=== PATIENT | female | born 1995 | race Caucasian/White ===

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

== ENCOUNTER 2019-05-24 15:17 | Outpatient (CLI) | payer MEDICAID ==
[2016-07-08 19:30] VITALS: BMI 32.4
== END 2019-05-24 16:35 | disposition home or self-care (01) ==
LOC: D.LDO 15:17
PROVIDERS: ATTEND Obstetrics & Gynecology
DX: O24.419 Gestational diabetes mellitus in pregnancy, unspecified control (principal); Z3A.00 Weeks of gestation of pregnancy not specified

== ENCOUNTER → 2019-05-28 17:51 | Outpatient (CLI) | payer MEDICAID ==
[2016-07-08 19:30] VITALS: BMI 32.4
== END | disposition home or self-care (01) ==
LOC: D.LDO 17:51
PROVIDERS: ATTEND Student in an Organized Health Care Education/Training Program
DX: O24.419 Gestational diabetes mellitus in pregnancy, unspecified control (principal); Z3A.00 Weeks of gestation of pregnancy not specified

== ENCOUNTER 2019-05-31 17:17 | Outpatient (CLI) | payer MEDICAID ==
[2016-07-08 19:30] VITALS: BMI 32.4
== END 2019-05-31 17:25 | disposition home or self-care (01) ==
LOC: D.LDO 17:17
PROVIDERS: ATTEND Obstetrics & Gynecology
DX: O24.419 Gestational diabetes mellitus in pregnancy, unspecified control (principal)

== ENCOUNTER → 2019-06-03 14:09 | Outpatient (CLI) | payer MEDICAID ==
[2016-07-08 19:30] VITALS: BMI 32.4
== END | disposition home or self-care (01) ==
LOC: D.LDO 14:09
PROVIDERS: ATTEND Obstetrics & Gynecology
DX: O24.419 Gestational diabetes mellitus in pregnancy, unspecified control (principal)

== ENCOUNTER 2019-06-07 12:04 | Outpatient (CLI) | payer MEDICAID ==
[2016-07-08 19:30] VITALS: BMI 32.4
== END 2019-06-07 14:03 | disposition home or self-care (01) ==
LOC: D.LDO 12:04
PROVIDERS: ATTEND Obstetrics & Gynecology
DX: O24.419 Gestational diabetes mellitus in pregnancy, unspecified control (principal); Z3A.32 32 weeks gestation of pregnancy

== ENCOUNTER → 2019-06-10 12:30 | Outpatient (CLI) | payer MEDICAID ==
[2016-07-08 19:30] VITALS: BMI 32.4
== END | disposition home or self-care (01) ==
LOC: D.LDO 12:30
PROVIDERS: ATTEND Obstetrics & Gynecology
DX: O24.419 Gestational diabetes mellitus in pregnancy, unspecified control (principal)

== ENCOUNTER 2019-06-17 11:13 | Outpatient (CLI) | payer MEDICAID ==
[2016-07-08 19:30] VITALS: BMI 32.4
== END 2019-06-17 13:00 | disposition home or self-care (01) ==
LOC: D.LDO 11:13
PROVIDERS: ATTEND Obstetrics & Gynecology
DX: Z34.90 Encounter for supervision of normal pregnancy, unspecified, unspecified trimester (principal)

== ENCOUNTER 2019-06-21 11:21 | Outpatient (CLI) | payer MEDICAID ==
[2016-07-08 19:30] VITALS: BMI 32.4
== END 2019-06-21 12:05 | disposition home or self-care (01) ==
LOC: D.LDO 11:21
PROVIDERS: ATTEND Obstetrics & Gynecology
DX: O24.419 Gestational diabetes mellitus in pregnancy, unspecified control (principal)

== ENCOUNTER 2019-06-24 11:55 | Outpatient (CLI) | payer MEDICAID ==
[2016-07-08 19:30] VITALS: BMI 32.4
== END 2019-06-24 12:03 | disposition home or self-care (01) ==
LOC: D.LDO 11:55
PROVIDERS: ATTEND Obstetrics & Gynecology
DX: O24.419 Gestational diabetes mellitus in pregnancy, unspecified control (principal); Z3A.34 34 weeks gestation of pregnancy

== ENCOUNTER 2019-06-28 12:08 | Outpatient (CLI) | payer MEDICAID ==
[2016-07-08 19:30] VITALS: BMI 32.4
== END 2019-06-28 12:23 | disposition home or self-care (01) ==
LOC: D.LDO 12:08
PROVIDERS: ATTEND Obstetrics & Gynecology
DX: O24.419 Gestational diabetes mellitus in pregnancy, unspecified control (principal); Z3A.35 35 weeks gestation of pregnancy

== ENCOUNTER 2019-07-01 10:44 | Outpatient (CLI) | payer MEDICAID ==
[2016-07-08 19:30] VITALS: BMI 32.4
[2019-07-01 12:08] LABS: BASOPHILS 0.1 % (0-2); EOSINOPHILS 0.6 % (0-7); HEMATOCRIT 39.4 % (36.0-48.0); HEMOGLOBIN 12.3 g/dL (12-16); IMMATURE GRANULOCYTES 0.1 % (0-5); LYMPHOCYTES 20.3 % (15-50); MCH 25.2 pg (26.0-34.0); MCHC 31.2 g/dL (31.0-37.0); MCV 80.7 fL (80.0-100.0); MEAN PLATELET VOLUME 10.2 fL (7.4-10.4); MONOCYTES 4.4 % (2-11); NEUTROPHILS 74.5 % (40-80); RBC 4.88 10x6/uL (4.00-5.40); WBC 8.2 10x3/uL (4.8-10.8)
[2019-07-01 12:22] LABS: PLATELET COUNT 228 10x3/uL (130-400)
[2019-07-01 13:40] LABS: BACTERIA MODERATE /hpf (NEGATIVE); BILIRUBIN NEGATIVE (NEGATIVE); GLUCOSE NEGATIVE (NEGATIVE); KETONE SMALL mg/dL (NEGATIVE); NITRITE NEGATIVE (NEGATIVE); UROBILINOGEN NORMAL (NORMAL)
== END 2019-07-01 13:45 | disposition home or self-care (01) ==
LOC: D.LDO 10:44
PROVIDERS: ATTEND Obstetrics & Gynecology
DX: O24.419 Gestational diabetes mellitus in pregnancy, unspecified control (principal); Z3A.35 35 weeks gestation of pregnancy

== ENCOUNTER 2019-07-05 11:51 | Outpatient (CLI) | payer MEDICAID ==
[2016-07-08 19:30] VITALS: BMI 32.4
== END 2019-07-05 11:52 | disposition home or self-care (01) ==
LOC: D.LDO 11:51
PROVIDERS: ATTEND Obstetrics & Gynecology
DX: O24.419 Gestational diabetes mellitus in pregnancy, unspecified control (principal); Z3A.36 36 weeks gestation of pregnancy

== ENCOUNTER 2019-07-08 11:31 | Outpatient (CLI) | payer MEDICAID ==
[2016-07-08 19:30] VITALS: BMI 32.4
== END 2019-07-08 12:05 | disposition home or self-care (01) ==
LOC: D.LDO 11:31
PROVIDERS: ATTEND Obstetrics & Gynecology
DX: O24.419 Gestational diabetes mellitus in pregnancy, unspecified control (principal); Z3A.36 36 weeks gestation of pregnancy

== ENCOUNTER 2019-07-12 11:21 | Outpatient (CLI) | payer MEDICAID ==
[2016-07-08 19:30] VITALS: BMI 32.4
== END 2019-07-12 11:40 | disposition home or self-care (01) ==
LOC: D.LDO 11:21
PROVIDERS: ATTEND Obstetrics & Gynecology
DX: O24.419 Gestational diabetes mellitus in pregnancy, unspecified control (principal); Z3A.37 37 weeks gestation of pregnancy

== ENCOUNTER 2019-07-15 12:08 | Outpatient (CLI) | payer MEDICAID ==
[2016-07-08 19:30] VITALS: BMI 32.4
== END 2019-07-15 12:30 | disposition home or self-care (01) ==
LOC: D.LDO 12:08
PROVIDERS: ATTEND Obstetrics & Gynecology
DX: O24.419 Gestational diabetes mellitus in pregnancy, unspecified control (principal); Z3A.37 37 weeks gestation of pregnancy

== ENCOUNTER → 2019-07-16 17:51 | Outpatient (CLI) | payer MEDICAID ==
[2016-07-08 19:30] VITALS: BMI 32.4
== END | disposition home or self-care (01) ==
LOC: D.LDO 17:51
PROVIDERS: ATTEND Obstetrics & Gynecology
DX: O26.893 Other specified pregnancy related conditions, third trimester (principal); Z3A.38 38 weeks gestation of pregnancy; N85.8 Other specified noninflammatory disorders of uterus; R10.30 Lower abdominal pain, unspecified; O24.419 Gestational diabetes mellitus in pregnancy, unspecified control

== ENCOUNTER 2019-07-19 11:07 | Outpatient (CLI) | payer MEDICAID ==
[2016-07-08 19:30] VITALS: BMI 32.4
== END 2019-07-19 12:30 | disposition home or self-care (01) ==
LOC: D.LDO 11:07
PROVIDERS: ATTEND Obstetrics & Gynecology
DX: O24.419 Gestational diabetes mellitus in pregnancy, unspecified control (principal); Z3A.38 38 weeks gestation of pregnancy

== ENCOUNTER 2019-07-22 05:50 | Inpatient (IN) | payer MEDICAID ==
[2019-07-22] VITALS (12 sets, daily range): BP systolic 98–133; BP diastolic 59–92; Ht 172.7 cm; Wt 107.3 kg
[~2019-07-22] VITALS: Ht 172.7 cm; Wt 107.3 kg
[2019-07-22 06:34] LABS: HEMATOCRIT 37.3 % (36.0-48.0); HEMOGLOBIN 11.8 g/dL (12-16); MCHC 31.6 g/dL (31.0-37.0); MEAN PLATELET VOLUME 10.2 fL (7.4-10.4); RBC 4.72 10x6/uL (4.00-5.40); RDW 14.8 % (11.5-14.5); WBC 8.2 10x3/uL (4.8-10.8)
[2019-07-22] MEDS ORDERED: GLYBURIDE5 M1 (06:45)
--- NOTE | 2019-07-22 09:35 | NUR ---
PT RECEIVED VIA BED FROM PACU TO ROOM 1219 POST . PT AAOx3, DENIES PAIN, NAUSEA, OR ANY NEEDS. PITOCIN INFUSING ORDERED TO RIGHT WRIST PIV. IV SITE C/D/I. FF, ML, U/2. SMALL RUBRA LOCHIA, NO CLOTS. ABD DRESSING OVER LOW TRANSVERSE INCISION SITE IS C/D/I. CURRY CATH DRAINING CLEAR YELLOW URINE. TUBING SECURED VIA STAT LOCK TO INNER RIGHT THIGH. SCD'S ON LE BILAT AND ON PUMP. INCENTIVE SPIROMETER AT BEDSIDE, WILL REINFORCE TEACHING. ICE PACK TO ABD INCISION WELL SUPPORTIVE SURGICAL PILLOW. PT GIVEN ICE WATER AND INSTRUCTED TO SIP SLOWLY AND REPORT ANY NAUSEA. EMESIS BAG GIVEN IN CASE OF VOMITING. SRUx2, CL IN REACH. TONNY RN IN PACU STATES HE IS GOING TO CHECK FSBS.
--- NOTE | 2019-07-22 09:45 | NUR ---
FF, ML, U/2. SMALL RUBRA LOCHIA, NO CLOTS. PT DENIES PAIN OR NEEDS.
--- NOTE | 2019-07-22 10:00 | NUR ---
FF, ML, U/2. SMALL RUBRA LOCHIA, NO CLOTS. PT SITTING UP IN BED HOLDING INFANT. DENIES NEEDS. SIG OTHER AT BEDSIDE. SRUx2, CL IN REACH.
--- NOTE | 2019-07-22 10:30 | NUR ---
FF, ML, U/2. SMALL RUBRA LOCHIA, NO CLOTS. VS REMAIN STABLE, SEE FLOWSHEET FOR DOC.
--- NOTE | 2019-07-22 11:00 | NUR ---
FF, ML, U/2. SMALL RUBRA LOCHIA, NO CLOTS. CURRY CATH DRAINING WELL, 60ML CLEAR YELLOW URINE EMPTIED FROM UROMETER. PERIPADS CHANGED. PT DENIES PAIN OR NEEDS. SRUx2, CL IN REACH. SIG OTHER AT BEDSIDE HOLDING INFANT. WILL CONT TO MONITOR.
--- NOTE | 2019-07-22 11:45 | NUR ---
SITTING UP IN BED HOLDING . DENIES NEEDS.
--- NOTE | 2019-07-22 12:00 | NUR ---
THIS RN TO ROOM FOR PT CHECK AND VS. VSS, SEE FLOWSHEET. PT REPORTS MILD PAIN, BUT STATES IT IS WELL CONTROLLED WITH TATTOO DESIGNER. ABD DRESSING REMAINS C/D/I. FF, ML, U/U. SMALL RUBRA LOCHIA, NO CLOTS. PERIPAD CHANGED. CURRY CATH DRAINING CLEAR YELLOW URINE, 60ML EMPTIED FROM UROMETER. PT DENIES ANY NEEDS AT THIS TIME. SRUx2, CL IN REACH. SIG OTHER AT BEDSIDE. NRSY IN ROOM WITH . WILL CONT TO MONITOR.
--- NOTE | 2019-07-22 13:00 | NUR ---
THIS RN TO ROOM FOR PT CHECK. FUNDUS FIRMS WITH MASSAGE, ML, U/U. SMALL RUBRA LOCHIA, NO CLOTS. PERIPAD CHANGED. CURRY CATH DRAINING CLEAR YELLOW URINE, 100ML EMPTIED FROM UROMETER. PT C/O CRAMPING PAIN AFTER FUNDAL MASSAGE, REQUESTING TORADOL DISCUSSED PREVIOUSLY. WILL ADMIN ORDERED. PT SITTING UP IN BED TO EAT CLEAR LIQUID LUNCH TRAY, DENIES NAUSEA. WILL ADMIN TORADOL ORDERED.
--- NOTE | 2019-07-22 13:13 | NUR ---
PT ADMIN TORADOL ORDERED, SEE EMAR FOR DOC. NEW ICE PACK TO ABD INCISION. PT DENIES NEEDS. SRUx2, CL IN REACH.
[2019-07-22 14:20] LABS: BASOPHILS 0.2 % (0-2); EOSINOPHILS 0.6 % (0-7); HEMATOCRIT 36.3 % (36.0-48.0); HEMOGLOBIN 11.3 g/dL (12-16); IMMATURE GRANULOCYTES 0.2 % (0-5); LYMPHOCYTES 17.9 % (15-50); MCH 24.6 pg (26.0-34.0); MCHC 31.1 g/dL (31.0-37.0); MCV 79.1 fL (80.0-100.0); MEAN PLATELET VOLUME 10.1 fL (7.4-10.4); MONOCYTES 7.3 % (2-11); NEUTROPHILS 73.8 % (40-80); PLATELET COUNT 198 10x3/uL (130-400); RBC 4.59 10x6/uL (4.00-5.40); RDW 14.6 % (11.5-14.5)
[2019-07-22 14:28] LABS: WBC 10.4 10x3/uL (4.8-10.8)
--- NOTE | 2019-07-22 14:30 | NUR ---
THIS RN TO ROOM FOR PT CHECK. PT SITTING UP IN BED, INFANT. FUNDUS FIRMS WITH MASSAGE, ML, U/U. SMALL RUBRA LOCHIA, NO CLOTS. PT REPORTS GOOD PAIN RELIEF AFTER TORADOL DOSE. 60ML EMPTIED FROM CURRY UROMETER. PT DENIES NEEDS. SRUx2, CL IN REACH.
--- NOTE | 2019-07-22 15:13 | NUR ---
THIS RN TO ROOM WITH FABRICE HONG. VSS, SEE FLOWSHEET FOR DOC. PT REPORTS PAIN SCALE OF 3-4/10, USING MACHINE SIZER NEEDED. PERICARE DONE, BED PADS CHANGED, NEW PERIPADS PLACED. FF, ML, U/U. SMALL TO MOD RUBRA LOCHIA, NO CLOTS. CURRY CATH DRAINING YELLOW URINE TO BEDSIDE DRAINAGE, 50ML NOTED EMPTIED FROM UROMETER. FRESH ICE WATER GIVEN. PT DENIES FURTHER NEEDS. SRUx2, CL IN REACH. WILL CONT TO MONITOR.
--- NOTE | 2019-07-22 17:38 | NUR ---
CARSON ARE DONE -SCANT LOCHIA NOTED. PADS CHANGED. FUNDUS UU/FIRM.
--- NOTE | 2019-07-22 17:39 | NUR ---
IV INTAKE- 1010CC. CURRY URINE OUTPUT- 950CC.
--- NOTE | 2019-07-22 17:46 | NUR ---
SIPPING ON CLEAR LIQ DIET AT THIS TIME.
--- NOTE | 2019-07-22 19:13 | NUR ---
REPORT TO PM SHIFT.
--- NOTE | 2019-07-22 19:15 | NUR ---
REPORT FROM HASEEB DIEHL RN
--- NOTE | 2019-07-22 20:00 | NUR ---
PT IN BED RESTING ON HER BACK. SHE STATES SHE IS STILL A LITTLE NUMB FROM HER EPIDURAL. i EXPLAINED THAT SHE WOULD STAY IN BED THE REST OF THE NIGHT. SHE HAS A CURRY CATHETER THAT IS DRAINING CLEAR YELLOW URINE. SHE HAS A DRESSING ON HER INCISION SITE WITH NO DRAINAGE OR BLEEDING NOTED. FUNDUS IS FIRM. LOCHIA IS SMALL TO MEDIUM. SHE HAS PASSED SOME STRINGY CLOTS. SHE WAS CLEANED UP WITH WARM WASHCLOTHES. PADS WERE CHANGED. PT HAS A COLD PATCHER PUMP FOR PAIN CONTROL. PT STATES SHE IS HUNGRY. GAVE HER A LIST OF THE CLEAR LIQUIDS ON THE UNIT AND SHE REQUESTED JUICE AND JELLO. BOTH WERE DELIVERED. NO NAUSEA NOTED. ASSESSMENT HAS BEEN COMPLETED.
--- NOTE | 2019-07-22 23:44 | NUR ---
RESTING QUIETLY IN ROOM. NO NEW C/O.
[2019-07-23] VITALS: BP 123/77
--- NOTE | 2019-07-23 | NUR ---
PT RESTING QUIETLY. VS TAKEN.
--- NOTE | 2019-07-23 00:10 | NUR ---
PT STATES SHE CAN FEEL HERSELF BLEEDING. I LOOKED AT HER PADS AND SHE NEEDED TO BE CLEANED UP AGAIN. HER CARSON AREA WAS CLEANED WITH WARM WASHCLOTHES. NO CLOTS NOTED THIS TIME. NEW PADS WERE PLACED AND A NEW TOWEL WAS PUT BENEATH HER BUTTOCKS. SHE STATES SHE FEELS BETTER.
--- NOTE | 2019-07-23 02:10 | NUR ---
PT RESTING QUIETLY IN HER ROOM. BABY AND ALSO IN ROOM
[2019-07-23 04:30] VITALS: BP 124/83
--- NOTE | 2019-07-23 04:30 | NUR ---
VS TAKEN. CHANGED PT PAD AGAIN. MUCH LESS BLEEDING THAN EARLIER THIS MORNING. EMPTIED CURRY CATHETER OBTAINING 1100 ML SLIGHT DARK URINE. PT HAS BEEN ENCOURAGED TO DRINK FLUIDS. SHE WAS GIVEN A MUG FULL OF FRESH WATER.
[2019-07-23 05:08] LABS: RAPID PLASMA REAGIN Non Reactive (Non Reactive)
--- NOTE | 2019-07-23 05:47 | NUR ---
PT IS RESTING QUIETLY. NO C/O
[2019-07-23 07:00] VITALS: BP 118/70
[2019-07-23 07:34] LABS: HEMATOCRIT 32.2 % (36.0-48.0); HEMOGLOBIN 10.5 g/dL (12-16); LYMPHOCYTES 31.4 % (15-50); MCH 25.4 pg (26.0-34.0); MCHC 32.6 g/dL (31.0-37.0); MEAN PLATELET VOLUME 9.7 fL (7.4-10.4); NEUTROPHILS 63.4 % (40-80); PLATELET COUNT 148 10x3/uL (130-400); RBC 4.13 10x6/uL (4.00-5.40); RDW 14.2 % (11.5-14.5); WBC 6.5 10x3/uL (4.8-10.8)
[2019-07-23 11:00] VITALS: BP 117/60
--- NOTE | 2019-07-23 11:40 | NUR ---
0715 AWAKE ALERT NO C/O PAIN UTILIZING [employer]AN[employer]IREMENT PLAN SPECIALIST OF DILAUDID ASSESSMENT COMPLETE ABDOMINAL DRESSING CDI
--- NOTE | 2019-07-23 11:41 | NUR ---
0720 LOCHIA SCANT RUBRA NOTED FUNDUS FIRM UNDER UMBILICA TENDERNESS TO TOUCH NOTED
--- NOTE | 2019-07-23 11:42 | NUR ---
0900 D/C DILAUDID NUTRITIONIST [facility]
--- NOTE | 2019-07-23 11:43 | NUR ---
0938 C/O PAIN PERCOCET 10 PO GIVEN
--- NOTE | 2019-07-23 11:44 | NUR ---
1000 DR ZAVALA AT BEDSIDE ASSESSING PATIENT REMOVED ABDOMINAL SURGICAL DRESSING ANNE INTACT NO DRAINAGE NOTED SITE SATISFACTORY
--- NOTE | 2019-07-23 11:46 | NUR ---
1010 PATRICIO MARTINES ASSISTED UP TO BEDSIDE COMMODE VOIDED 1OOOML URINE SPECIMEN COLLECTED AND SENT TO LAB
--- NOTE | 2019-07-23 11:48 | NUR ---
1015 UP TO SHOWER WITH ASSIST X 1 SHOWER CHAIR PROVIDED S.O. ASSISTED WITH SHOWER
--- NOTE | 2019-07-23 11:49 | NUR ---
1110 AMBULATING IN RUIZ PUSHING WHEELCHAIR WITH S.O. WITH STANDBY ASSIST WENT TO NURSERY WINDOW AND BACK
[2019-07-23 12:06] LABS: BILIRUBIN NEGATIVE (NEGATIVE); GLUCOSE NEGATIVE (NEGATIVE); KETONE NEGATIVE (NEGATIVE); NITRITE NEGATIVE (NEGATIVE); UROBILINOGEN NORMAL (NORMAL)
[2019-07-23 12:07] LABS: BACTERIA FEW /hpf (NEGATIVE); EPITHELIAL CELLS 0-5 /hpf (0-5); RED CELLS - URINE >50 /hpf (0-5); WHITE CELLS - URINE OCC /hpf (NEGATIVE)
--- NOTE | 2019-07-23 13:26 | NUR ---
1300 IN CHAIR APPETITE GOOD S.O. REMAINS AT BEDSIDE
--- NOTE | 2019-07-23 14:24 | NUR ---
1420 IN BED ASLEEP BABY IS IN THE NURSERY AT PRESENT S.O. REMAINS AT BEDSIDE
[2019-07-23 15:00] VITALS: BP 112/77
--- NOTE | 2019-07-23 16:04 | NUR ---
1500 AMBULATED TO TOILET WITHOUT ASSIST VOIDED 1000 ML YELLOW URINE
--- NOTE | 2019-07-23 17:44 | NUR ---
1722 C/O PAIN 10/23 PERCOCET 10MG PO GIVEN
--- NOTE | 2019-07-23 18:28 | NUR ---
3943 REASSESSMENT OF PAIN LEVEL PATIENT STATED 05/23
--- NOTE | 2019-07-23 19:09 | NUR ---
RECEIVED SHIFT REPORT FROM DAY SHIFT NURSE, INFORMED PT THAT I WILL BE BACK SHORTLY TO DO ASSESSMENT AND THEN TRANSFER HER TO L&D, PT VERBALIZES UNDERSTANDING, DENIES NEEDS AT THIS TIME, FOB ASLEEP AT BEDSIDE
[2019-07-23 19:25] VITALS: BP 124/77
--- NOTE | 2019-07-23 19:25 | NUR ---
ASSESSMENT PER FLOW SHEET, VS OBTAIEND, SALINE LOCK IN RIGHT WRIST INTACT WITH NO REDNESS OR EDEMA, FF, ML, U/2, PT REPORTS LITE BLEEDIG WITH NO CLOTS, BIKINI INC WITH ANNE CDI WITH NO DRAINAGE NOTED, CARSON PAD OVER INC FOR COMFORT AND MOISTURE CONTROL, PT REPORTS FLATUS, NO BM, AND VOIDING WITH NO DIFFICULTY, PT RATES INC PAIN 05/23, INFORMED PT THAT I AM GOING TO MAKE SURE HER ROOM IS READY AND BE RIGHT BACK, FOB AWAKE AND GETTING THINGS TOGETHER, INFANT TO NSY VIA OPEN CRIB CART PER THIS RN
--- NOTE | 2019-07-23 19:45 | NUR ---
PT TRANSFERRED TO ROOM 1273 VIA AMB, GAIT STEADY, WITH ALL BELONGINGS PER THIS RN AND FOB, PT ORIENTED TO ROOM, BED IN LOW POSITION, SIDE RAILS X 2, CALL LIGHT IN REACH
--- NOTE | 2019-07-23 20:30 | NUR ---
PT SITTING UP ON COUCH, DENIES NEEDS AT THIS TIME, FOB AT SIDE
--- NOTE | 2019-07-23 21:32 | NUR ---
PT IN BED, , C/O INC PAIN AND CRAMPING ADM PERCOCET AND MOTRIN PER MD ORDERS, SEE EMAR, WITH FRESH H20, PT DENIES FURTHER NEEDS, FOB AT BEDSIDE
--- NOTE | 2019-07-23 22:30 | NUR ---
PT HOLDING INFANT, LOOKING AT CELL PHONE, DENIES NEEDS AT THIS TIME, FOB AT BEDSIDE
[2019-07-24 00:05] VITALS: BP 119/68
--- NOTE | 2019-07-24 00:05 | NUR ---
PT AWAKE, INFANT TO ROOM VIA OPEN CRIB CART PER NSY NURSE, VS OBTAINED, HANDED INFANT TO PT, PT DENIES PAIN, REQUESTED AND SERVED FRESH H20, DENIES FURTHER NEEDS, FOB ASLEEP ON COUCH
--- NOTE | 2019-07-24 02:04 | NUR ---
PT AWAKE, HOLDING INFANT, DENIES NEED FOR PAIN MED AT THIS TIME, PT INST TO USE CALL LIGHT WHEN NEEDING PAIN MED, PT VERBALIZES UNDERSTANDING, DENIES NEEDS, FOB ASLEEP ON COUCH
[2019-07-24 04:10] VITALS: BP 124/83
--- NOTE | 2019-07-24 04:10 | NUR ---
PT AWAKE, HOLDING INFANT, VS OBTAINED, C/O INC PAIN AND CRAMPING, ADM PERCOCET AND MOTRIN PER MD ORDERS, SEE EMAR, PT DENIES FURTHER NEEDS, FOB ASLEEP ON COUCH
--- NOTE | 2019-07-24 04:28 | NUR ---
DR ZAVALA ON UNIT, DID ROUNDING, ORDER TO DISCHARGE PT AFTER 48 HOUR POST OP
--- NOTE | 2019-07-24 06:18 | NUR ---
PT HOLDING INFANT, DENIES NEEDS AT THIS TIME, FOB ASLEEP ON COUCH
[2019-07-24 07:00] VITALS: BP 138/79
[2019-07-24 11:00] VITALS: BP 127/72
--- NOTE | 2019-07-24 12:10 | NUR ---
0700 AWAKE ALERT SITTING IN BED HOLDING FATHER SITTING ON BEDSIDE LOOKING AT THE BABY STATED SHE WANTED PAIN MED WHEN IT WAS DUE NEXT VSS BREAKFAST SERVED ASSESSMENT COMPLETE SCANT LOCHIA NOTED FUNDUS FIRM BELOW UMBILICUS 2 FINGER BREATHS ABDOMINAL INCISION WITH ANNE CDI NO DRAINAGE NOTED SIGHT GISELLE
--- NOTE | 2019-07-24 12:16 | NUR ---
0800 APPETITE GOOD DENIES NAUSEA AMBULATING IN ROOM VOIDS WITH DIFFICULTY ASKING WHEN THEY CAN GO HOME. INFORMED PATIENT THAT ADMINISTRATOR SOCIAL WELFARE HAS TO ASSESS THE BABY BEFORE WRTTING DISCHARGE ORDERS
--- NOTE | 2019-07-24 12:22 | NUR ---
0915 REQUESTED PAIN MEDICATION PAIN LEVEL 6/10 PERCOCET 10 MG AND MOTRIN 600 MG PO GIVEN
--- NOTE | 2019-07-24 12:24 | NUR ---
1000 PAIN LEVEL NOW 1/10 PT SITTING ON SOFA IN ROOM AND DRESSED FOR HOME
[2019-07-24] MEDS ORDERED: PERCOCET 5-3251 TAB PO (12:25)
--- NOTE | 2019-07-24 12:25 | NUR ---
1100 SALINE LOCK DISCONTINUED. SPOUSE TAKING BELONGINGS TO CAR AND WILL BRING BACK THE SAFTY CAR BABY SEAT BACK UP TO THE ROOM
--- NOTE | 2019-07-24 12:27 | NUR ---
1200 LUNCH COMPLETE DENIES NAUSEA ASKING IF BABY HAS DISCHARGE ORDERS INFORMED THAT THE BABY DR WAS IN THE NURSERY NOW
--- NOTE | 2019-07-24 12:55 | NUR ---
1250 DISCHARGE PAPERS SIGNED WRITTEN AND VERBAL DISCHARGE INSTRUCTIONS WRITTEN PT VERBAALIZES UNDERSTANDING DR ALMARAZ ARRIVED TO ROOM AND SPOKE WITH THE PARENTS ABOUT THE BABYS DISCHARGE
--- NOTE | 2019-07-25 17:04 | MORECARE ---
CASE MANAGEMENT DISCHARGE SUMMARY PATIENT: JOSEE JONES UNIT: [id number] ADM DATE: 07/22/19 AGE: 23 : [birth year] SEX: F ROOM/BED: D.1273 AUTHOR: AUDI HENDRICKS PHYSICIAN: REFERRING PHYSICIAN: PHIL MCKEON MD DATE OF SERVICE: 07/25/19 Discharge Plan Patient Name: JOSEE JONES [facility] [facility] 1995 Planned Disposition: Home Anticipated Discharge Date: 07/24/19 Discharge Date: 07/24/2019 Expected LOS: 2 Initial Reviewer: [email or web address] Initial Review Date: 07/22/2019 Generated: 07/25/19 6:03 pm Patient Name: JOSEE JONES Page [id number] at 1704 All edits/amendments must be made on the electronic document DICTATION DATE: 07/25/191702 NUCLEAR PLANT INSTRUMENT TECHNICIAN: JAMIL 07/25/191702 RPT#: [id number] DC DATE:07/24/19 STATUS: DIS IN [facility] [address] [place] [address] END OF REPORT
--- NOTE | 2019-07-26 07:51 | OP ---
PATIENT NAME: JOSEE JONES MEDICAL RECORD: [id number] :[birth year] LOCATION:[facility] D.1273 ADMISSION DATE:07/22/19 SURGEON: LOUIE PARKER MD DATE OF OPERATION: 07/22/2019 PREOPERATIVE DIAGNOSES: 1. History of previous section. 2. Term intrauterine at 39 weeks. 3. A2 gestational diabetes. POSTOPERATIVE DIAGNOSES: 1. History of previous section. 2. Term intrauterine at 39 weeks. 3. A2 gestational diabetes. PROCEDURE: A repeat low transverse section. SURGEON: Louie Parker MD ANESTHESIA: Regional via spinal. INTRAVENOUS FLUIDS: Per anesthesia record. ESTIMATED BLOOD LOSS: 800 cc. SPECIMENS: Placenta and cord for gases. COMPLICATIONS: None apparent. FINDINGS: 1. Viable female , Apgars 9 at 1 and 9 at 5. 2. Placenta delivered manually intact, 3-vessel cord noted. 3. Normal adnexa bilaterally. PROCEDURE IN DETAIL: The patient was taken to the operating room where regional anesthesia was achieved without difficulty. The patient was then prepped and draped in normal sterile fashion in the dorsal supine position. SCDs were on and functioning normally. A Edwards catheter had been placed and was draining freely. Following prep and drape, a repeat Pfannenstiel skin incision was made, extended downward to the underlying subcutaneous fat to level of the fascia. The fascia was then excised in midline and extended bilaterally using the Del Real scissors and the Bovie cautery. The superior and inferior aspects of the fascial incision then grasped with Ralph clamps times 2, tented upward, and sharply dissected from the underlying rectus muscle using the Bovie cautery and Del Real scissors. The rectus muscles were bluntly in the midline and the peritoneum was entered sharply at the superior aspect of the incision. A downward dissection was performed and the bladder was visualized well and not felt to be under any abdominal distention. At this point, a bladder blade was placed into the pelvis and a bladder flap was created by excising the anterior leaf of broad ligament across the lower uterine segment. A low transverse incision was made on the uterus and extended via the Pelosi method. The vertex identified and corrected to a head flexion using the Kiwi vacuum with 1 application, correction of head flexion without traction on the neck. As the infants head was placed into the flexed position, delivery was performed. The vacuum was immediately removed. The was delivered OPERATIVE REPORT [id number] JOSEE JONES atraumatically, was bulb suctioned upon delivery. Cord was clamped times 2, cut, and was handed to awaiting nursery team. At this point, cord was obtained for gases. The placenta was removed manually intact, 3-vessel cord was noted. The uterus was exteriorized, cleared of all clots and debris and then repaired with 0 Vicryl in a running locked fashion times 2. The posterior cul-de-sac was then thoroughly irrigated and the uterus was returned to the pelvis, following confirmation of hemostasis, following repair of the uterine incision with 0 Vicryl. Counts were correct times 2 for needles, sponges, and instruments. The fascia was repaired with 0 loop PDS times 1 in a running unlocked fashion. The skin was repaired with tamanna. The patient tolerated procedure well, transferred to postanesthesia recovery stable without incident. TRANSINT:[id number] Voice Confirmation ID: [id number] DOCUMENT ID: [id number] LOUIE PARKER MD at 0751 CC: [id number] DICTATION DATE: 07/25/19 1023 VOICE WRITING REPORTER: 07/25/19 1203 DIS IN 07/24/19 [facility] [address] [place] [address]
== END 2019-07-24 18:00 | disposition home or self-care (01) | DRG 788 ==
LOC: D.WS 05:50 → D.LD 05:50 → D.SDCHOLD 07:30 → D.WS 09:44 → D.LD 07-23 19:45
PROVIDERS: Obstetrics & Gynecology; ADMIT Obstetrics & Gynecology; ATTEND Obstetrics & Gynecology
PROC: 10D00Z1 Extraction of Products of Conception, Low, Open Approach (ICD-10-PCS; principal; 2019-07-22 07:30)
DX: O24.429 Gestational diabetes mellitus in childbirth, unspecified control (principal); O34.219 Maternal care for unspecified type scar from previous cesarean delivery; Z3A.39 39 weeks gestation of pregnancy; Z37.0 Single live birth